=== PATIENT | female | born 1950 | race Caucasian/White ===

== ENCOUNTER 2020-07-01 16:28 | Emergency (ER) | payer OTHER ==
[~2020-07-01] VITALS: Ht 147.3 cm; Wt 76.0 kg
[2020-07-01] MEDS ORDERED: MORPHINE SULFATE 4 MG/ML CPJ (NOT FOR IM USE) IV STA (17:00)
[2020-07-01] MEDS ORDERED: ONDANSETRON HCL 4MG/2ML INJ IV STA (17:00)
[2020-07-01] MEDS ORDERED: KETOROLAC 15MG/ML VIAL IV ONE (17:30)
[2020-07-01] MEDS ORDERED: KETAMINE HCL 50 MG/ML 10ML IV ONE (17:45)
[2020-07-01] MEDS ORDERED: PROPOFOL 200MG/20ML VIAL IV ONE (17:45)
[2020-07-01 21:12] VITALS: BP 138/81
== END 2020-07-01 21:16 | disposition home or self-care (01) ==
LOC: ER 16:28
DX: S43.084A Other dislocation of right shoulder joint, initial encounter (principal); Z88.5 Allergy status to narcotic agent; Z88.6 Allergy status to analgesic agent; Z88.1 Allergy status to other antibiotic agents; Z98.890 Other specified postprocedural states; Z90.710 Acquired absence of both cervix and uterus; W01.198A Fall on same level from slipping, tripping and stumbling with subsequent striking against other object, initial encounter; Y93.89 Activity, other specified; Y92.018 Other place in single-family (private) house as the place of occurrence of the external cause
CPT/HCPCS: 23650; 73030; 93005; 96374; 99152; 99285; J1885; J2704; J3490; J2270; J2405; L3670